=== PATIENT | male | born 1945 | race Caucasian/White ===

== ENCOUNTER 2018-11-04 11:04 | Inpatient (IN) | payer MEDICARE, OTHER ==
[2018-11-04 12:16] LABS: ABNORMAL IP MESSAGE 1; HEMATOCRIT 36.1 % (42.0-52.0); HEMOGLOBIN 12.3 g/dl (14.0-18.0); MEAN CORPUSCULAR HEMOGLOBIN 28.9 pg (29.0-33.0); MEAN CORPUSCULAR HGB CONC 34.1 g/dl (32.0-37.0); MEAN CORPUSCULAR VOLUME 84.9 fl (82.0-101.0); MEAN PLATELET VOLUME 11.1 fl (7.4-10.4); PLATELET COUNT 224 10^3/UL (140-415); POSITIVE DIFF @See below; RED BLOOD COUNT 4.25 10^6/ul (4.70-6.10); RED CELL DISTRIBUTION WIDTH 14.6 % (11.5-14.5)
[2018-11-04 12:16] LABS: WHITE BLOOD COUNT 9.5 10^3/ul (4.8-10.8)
[2018-11-04 12:24] LABS: ADD MAN DIFF? YES; ALANINE AMINOTRANSFERASE 34 IU/L (13-69); ALBUMIN/GLOBULIN RATIO 1.05; ALKALINE PHOSPHATASE 128 IU/L (42-121); ANION GAP 24 (5-13); ASPARTATE AMINO TRANSFERASE 33 IU/L (15-46); BLOOD UREA NITROGEN 117 mg/dl (7-20); CARBON DIOXIDE 15 mmol/L (21-31); CHLORIDE 102 mmol/L (97-110); CREATININE 10.85 mg/dl (0.61-1.24); GLUCOSE 112 mg/dl (70-220); LIPASE 118 U/L (23-300); POTASSIUM 4.9 mmol/L (3.5-5.1); SODIUM 141 mmol/L (135-144); TOTAL PROTEIN 7.8 g/dl (6.1-8.1)
[2018-11-04 12:31] LABS: ADD UMIC YES; UR ASCORBIC ACID NEGATIVE (NEGATIVE); UR BACTERIA FEW /HPF (NONE SEEN); UR BILIRUBIN (Dip) NEGATIVE (NEGATIVE); UR BLOOD (Dip) 2+ mg/dL (NEGATIVE); UR CLARITY CLOUDY (CLEAR); UR COLOR YELLOW (YELLOW); UR GLUCOSE (Dip) NEGATIVE (NEGATIVE); UR KETONES (Dip) NEGATIVE (NEGATIVE); UR LEUKOCYTE ESTERASE (Dip) 3+ Leu/ul (NEGATIVE); UR MUCUS FEW /HPF (NONE SEEN); UR NITRITE (Dip) NEGATIVE (NEGATIVE); UR RBC 8 /HPF (0-5); UR SPECIFIC GRAVITY (Dip) 1.009 (1.003-1.030); UR TOTAL PROTEIN (Dip) 2+ mg/dl (NEGATIVE); UR UROBILINOGEN (Dip) NEGATIVE (NEGATIVE); UR WBC > 182 /HPF (0-5)
[2018-11-04 12:47] LABS: ANISOCYTOSIS 1+ (0-0); BAND NEUTROPHILS % (M) 32 % (0-4); GIANT THROMBO% (M) 3 % (0-0); LYMPHOCYTES #M 0.8 10^3/ul (0.8-2.9); LYMPHOCYTES % (M) 9 % (15-51); MICROCYTOSIS 1+ (0-0); MONOCYTE #M 0.5 10^3/ul (0.3-0.9); MONOCYTES % (M) 6 % (0-11); OVALOCYTES 1+ (0-0); PLATELET ESTIMATE NORMAL; REACTIVE LYMPHOCYTES #M 0.2 10^3/ul (0.0-0.0); REACTIVE LYMPHOCYTES% (M) 3 % (0-0); SEGMENTED NEUTROPHILS (M) % 50 % (39-77); SMUDGE%M 12 % (0-0)
[2018-11-04] MEDS: CEFTRIAXONE 1 GM/50 ML (PMX) 50 ML IVPB (13:34)
[2018-11-04] MEDS ORDERED: ACETAMINOPHEN 325 MG TAB PO (15:30)
[2018-11-04] MEDS ORDERED: BISACODYL 10 MG SUPP PR (15:30)
[2018-11-04] MEDS ORDERED: DOCUSATE SODIUM 100 MG CAP PO (15:30)
[2018-11-04] MEDS ORDERED: NACL 0.9% 3 ML SYG IV (15:30)
[2018-11-04] MEDS ORDERED: morphine 2 MG INJ IV (15:30)
[2018-11-04] MEDS ORDERED: ONDANSETRON 4 MG INJ IV ×2 (15:30)
[2018-11-04] MEDS: ACETAMINOPHEN 325 MG TAB PO (15:39)
[2018-11-04] MEDS: SODIUM CHLORIDE 0.9% 1L BAG IV* (15:46)
[2018-11-04 16:18] LABS: INR 1.33; PROTIME 16.6 Sec (11.9-14.9); PT RATIO 1.3
[2018-11-04] MEDS: SOD CHLORIDE 0.9% 1,000 ML IV (16:59)
[2018-11-04] MEDS ORDERED: INSULIN ASPART [NOVOLOG] 3 ML PEN SC (17:00)
[2018-11-04] MEDS ORDERED: GUAIFENESIN/DM 5ML CUP PO (17:30)
[2018-11-04 17:38] LABS: CREATININE,URINE RANDOM 96.32 mg/dl (20-370)
[2018-11-04 17:38] LABS: SODIUM,URINE RANDOM 90 mmol/L (30-90)
[2018-11-04] MEDS: INSULIN ASPART [NOVOLOG] 3 ML PEN SC ×2 (17:55→20:41)
[2018-11-04] MEDS: HYDROCODONE/APAP (5/325) TAB PO (20:42)
[2018-11-04] MEDS: SENNA/DOCUSATE NA (8.6MG/50MG) TAB PO (20:42)
[2018-11-04] MEDS: FAMOTIDINE 20 MG TAB PO (20:42)
[2018-11-04] MEDS: CITRIC ACID/NA CITRATE 30 ML CUP PO (21:00)
[2018-11-05] MEDS: ACCU-CHEK XX (02:00)
[2018-11-05] MEDS: SOD CHLORIDE 0.9% 1,000 ML IV ×2 (06:22→23:17)
[2018-11-05] MEDS: INSULIN ASPART [NOVOLOG] 3 ML PEN SC ×4 (07:56→20:23)
[2018-11-05] MEDS: THIAMINE 100 MG TAB PO (08:05)
[2018-11-05] MEDS: CITRIC ACID/NA CITRATE 30 ML CUP PO ×2 (08:05→20:13)
[2018-11-05] MEDS: FAMOTIDINE 20 MG TAB PO ×2 (08:05→20:16)
[2018-11-05 08:32] LABS: SODIUM,URINE RANDOM 66 mmol/L (30-90)
[2018-11-05 08:45] LABS: CREATININE,URINE RANDOM 79.58 mg/dl (20-370)
[2018-11-05 08:56] LABS: ADD MAN DIFF? NO
[2018-11-05 09:07] LABS: ABNORMAL IP MESSAGE 1; BASOPHILS % 0.1 % (0.0-2.0); EOSINOPHILS # 0.1 10^3/ul (0.0-0.5); EOSINOPHILS % 0.9 % (0.0-7.0); HEMATOCRIT 30.5 % (42.0-52.0); HEMOGLOBIN 10.3 g/dl (14.0-18.0); LYMPHOCYTES # 0.5 10^3/ul (0.8-2.9); LYMPHOCYTES % 5.2 % (15.0-51.0); MEAN CORPUSCULAR HEMOGLOBIN 29.2 pg (29.0-33.0); MEAN CORPUSCULAR HGB CONC 33.8 g/dl (32.0-37.0); MEAN CORPUSCULAR VOLUME 86.4 fl (82.0-101.0); MEAN PLATELET VOLUME 11.7 fl (7.4-10.4); MONOCYTE # 0.4 10^3/ul (0.3-0.9); MONOCYTES % 3.6 % (0.0-11.0); NEUTROPHIL # 8.9 10^3/ul (1.6-7.5); NEUTROPHILS % 89.9 % (39.0-77.0); PLATELET COUNT 205 10^3/UL (140-415); POSITIVE DIFF @See below; RED BLOOD COUNT 3.53 10^6/ul (4.70-6.10); RED CELL DISTRIBUTION WIDTH 14.6 % (11.5-14.5)
[2018-11-05 09:07] LABS: WHITE BLOOD COUNT 9.9 10^3/ul (4.8-10.8)
[2018-11-05 09:17] LABS: HEMOGLOBIN A1C 5.8 % (0-5.9)
[2018-11-05 09:23] LABS: URIC ACID 9.5 mg/dl (3.1-7.9)
[2018-11-05 09:23] LABS: ALANINE AMINOTRANSFERASE 33 IU/L (13-69); ALBUMIN 2.6 g/dl (3.3-4.9); ALBUMIN/GLOBULIN RATIO 0.92; ALKALINE PHOSPHATASE 117 IU/L (42-121); ANION GAP 20 (5-13); ASPARTATE AMINO TRANSFERASE 22 IU/L (15-46); BLOOD UREA NITROGEN 114 mg/dl (7-20); CALCIUM 8.1 mg/dl (8.4-10.2); CARBON DIOXIDE 16 mmol/L (21-31); CHLORIDE 110 mmol/L (97-110); CREATINE KINASE 153 IU/L (23-200); GLUCOSE 81 mg/dl (70-220); POTASSIUM 4.4 mmol/L (3.5-5.1); SODIUM 146 mmol/L (135-144); TOTAL PROTEIN 5.4 g/dl (6.1-8.1)
[2018-11-05 09:52] LABS: THYROID STIMULATING HORMONE 0.278 MIU/L (0.465-4.680)
[2018-11-05 14:38] LABS: PROSTATE SPECIFIC ANTIGEN 13.4 ng/ml (0.0-4.0)
[2018-11-05] MEDS: HYDROCODONE/APAP (5/325) TAB PO (14:42)
[2018-11-05] MEDS: CEFTRIAXONE 1 GM/NS 50 ML IVPB (15:09)
[2018-11-05] MEDS: SENNA/DOCUSATE NA (8.6MG/50MG) TAB PO (20:16)
[2018-11-06] MEDS: ACCU-CHEK XX (02:00)
[2018-11-06 05:03] LABS: ADD MAN DIFF? NO
[2018-11-06 05:08] LABS: WHITE BLOOD COUNT 11.6 10^3/ul (4.8-10.8)
[2018-11-06 05:08] LABS: BASOPHILS % 0.1 % (0.0-2.0); EOSINOPHILS # 0.1 10^3/ul (0.0-0.5); HEMATOCRIT 29.2 % (42.0-52.0); HEMOGLOBIN 10.1 g/dl (14.0-18.0); LYMPHOCYTES # 0.6 10^3/ul (0.8-2.9); LYMPHOCYTES % 5.4 % (15.0-51.0); MEAN CORPUSCULAR HEMOGLOBIN 28.7 pg (29.0-33.0); MEAN CORPUSCULAR HGB CONC 34.6 g/dl (32.0-37.0); MEAN PLATELET VOLUME 11.1 fl (7.4-10.4); MONOCYTE # 0.8 10^3/ul (0.3-0.9); MONOCYTES % 6.5 % (0.0-11.0); NEUTROPHILS % 85.9 % (39.0-77.0); PLATELET COUNT 201 10^3/UL (140-415); RED BLOOD COUNT 3.52 10^6/ul (4.70-6.10)
[2018-11-06 05:25] LABS: INR 1.18; PROTIME 15.1 Sec (11.9-14.9); PT RATIO 1.2
[2018-11-06 05:34] LABS: ALANINE AMINOTRANSFERASE 22 IU/L (13-69); ALBUMIN 2.9 g/dl (3.3-4.9); ALBUMIN/GLOBULIN RATIO 0.78; ALKALINE PHOSPHATASE 252 IU/L (42-121); ANION GAP 13 (5-13); ASPARTATE AMINO TRANSFERASE 34 IU/L (15-46); BLOOD UREA NITROGEN 100 mg/dl (7-20); CALCIUM 8.5 mg/dl (8.4-10.2); CARBON DIOXIDE 16 mmol/L (21-31); CHLORIDE 113 mmol/L (97-110); GLUCOSE 94 mg/dl (70-220); POTASSIUM 3.7 mmol/L (3.5-5.1); SODIUM 142 mmol/L (135-144); TOTAL PROTEIN 6.6 g/dl (6.1-8.1)
[2018-11-06 05:41] LABS: FREE T4 (FREE THYROXINE) 1.44 ng/dl (0.78-2.44)
[2018-11-06 05:55] LABS: TRIIODOTHYRONINE 0.97 ng/ml (0.97-1.69)
[2018-11-06] MEDS: INSULIN ASPART [NOVOLOG] 3 ML PEN SC ×4 (08:00→21:00)
[2018-11-06] MEDS: FAMOTIDINE 20 MG TAB PO ×2 (08:18→21:25)
[2018-11-06] MEDS: THIAMINE 100 MG TAB PO (08:18)
[2018-11-06] MEDS: CITRIC ACID/NA CITRATE 30 ML CUP PO ×2 (08:18→21:26)
[2018-11-06] MEDS: SOD CHLORIDE 0.45% 1,000 ML IV (09:45)
[2018-11-06] MEDS: BISACODYL (EC) 5 MG TAB PO (12:23)
[2018-11-06] MEDS: CEFTRIAXONE 1 GM/NS 50 ML IVPB (14:46)
[2018-11-06] MEDS ORDERED: morphine LIQ (10 MG/5 ML) CUP PO (15:00)
[2018-11-06] MEDS: SENNA/DOCUSATE NA (8.6MG/50MG) TAB PO (21:26)
[2018-11-07] MEDS: SOD CHLORIDE 0.45% 1,000 ML IV ×2 (01:10→05:47)
[2018-11-07] MEDS: ACCU-CHEK XX (01:53)
[2018-11-07] MEDS: INSULIN ASPART [NOVOLOG] 3 ML PEN SC ×4 (08:00→21:00)
[2018-11-07] MEDS: CITRIC ACID/NA CITRATE 30 ML CUP PO ×2 (08:12→21:20)
[2018-11-07] MEDS: FAMOTIDINE 20 MG TAB PO (08:13)
[2018-11-07] MEDS: ENOXAPARIN 30 MG/0.3 ML SYG SC (08:14)
[2018-11-07] MEDS: THIAMINE 100 MG TAB PO (08:17)
[2018-11-07] MEDS: CEFTRIAXONE 1 GM/NS 50 ML IVPB (14:51)
[2018-11-07] MEDS: HYDROCODONE/APAP (5/325) TAB PO (14:57)
[2018-11-07 15:28] LABS: ANION GAP 13 (5-13); BLOOD UREA NITROGEN 87 mg/dl (7-20); CALCIUM 8.7 mg/dl (8.4-10.2); CARBON DIOXIDE 22 mmol/L (21-31); CHLORIDE 105 mmol/L (97-110); CREATININE 5.82 mg/dl (0.61-1.24); GLUCOSE 158 mg/dl (70-220); POTASSIUM 3.4 mmol/L (3.5-5.1); SODIUM 140 mmol/L (135-144)
[2018-11-07] MEDS ORDERED: DEXTROSE 50% 50 ML SYRINGE IV ×2 (18:00)
[2018-11-07] MEDS ORDERED: GLUCAGON 1 MG INJ IM (18:00)
[2018-11-07] MEDS ORDERED: GLUCOSE GEL 15 GRAM TUBE PO ×2 (18:00)
[2018-11-07] MEDS ORDERED: GLUCOSE GEL 15 GRAM TUBE BUCCAL (18:00)
[2018-11-07] MEDS: CIPROFLOXACIN 250 MG TAB PO (18:36)
[2018-11-07] MEDS: LACTOBACILLUS RHAMNOSUS CAP PO (21:20)
[2018-11-07] MEDS: SENNA/DOCUSATE NA (8.6MG/50MG) TAB PO (21:20)
[2018-11-08] MEDS: ACCU-CHEK XX (02:00)
[2018-11-08] MEDS: SOD CHLORIDE 0.45% 1,000 ML IV ×2 (02:45→20:45)
[2018-11-08 05:35] LABS: ADD MAN DIFF? NO
[2018-11-08 05:40] LABS: WHITE BLOOD COUNT 13.7 10^3/ul (4.8-10.8)
[2018-11-08 05:40] LABS: ABNORMAL IP MESSAGE 1; BASOPHIL # 0.1 10^3/ul (0.0-0.1); BASOPHILS % 0.4 % (0.0-2.0); EOSINOPHILS # 0.2 10^3/ul (0.0-0.5); EOSINOPHILS % 1.3 % (0.0-7.0); HEMATOCRIT 30.4 % (42.0-52.0); HEMOGLOBIN 10.6 g/dl (14.0-18.0); LYMPHOCYTES # 1.2 10^3/ul (0.8-2.9); LYMPHOCYTES % 8.5 % (15.0-51.0); MEAN CORPUSCULAR HEMOGLOBIN 28.2 pg (29.0-33.0); MEAN CORPUSCULAR HGB CONC 34.9 g/dl (32.0-37.0); MEAN CORPUSCULAR VOLUME 80.9 fl (82.0-101.0); MEAN PLATELET VOLUME 11.2 fl (7.4-10.4); MONOCYTE # 1.6 10^3/ul (0.3-0.9); MONOCYTES % 11.8 % (0.0-11.0); NEUTROPHIL # 10.1 10^3/ul (1.6-7.5); NEUTROPHILS % 73.9 % (39.0-77.0); PLATELET COUNT 240 10^3/UL (140-415); POSITIVE DIFF @See below; RED BLOOD COUNT 3.76 10^6/ul (4.70-6.10); RED CELL DISTRIBUTION WIDTH 13.4 % (11.5-14.5)
[2018-11-08 05:57] LABS: ANION GAP 12 (5-13); BLOOD UREA NITROGEN 80 mg/dl (7-20); CALCIUM 8.3 mg/dl (8.4-10.2); CARBON DIOXIDE 21 mmol/L (21-31); CHLORIDE 105 mmol/L (97-110); CREATININE 5.24 mg/dl (0.61-1.24); GLUCOSE 118 mg/dl (70-220); POTASSIUM 3.4 mmol/L (3.5-5.1); SODIUM 138 mmol/L (135-144)
[2018-11-08 06:44] LABS: MAGNESIUM 1.6 mg/dl (1.7-2.5)
[2018-11-08] MEDS: INSULIN ASPART [NOVOLOG] 3 ML PEN SC ×4 (07:48→20:36)
[2018-11-08] MEDS: FAMOTIDINE 20 MG TAB PO (08:47)
[2018-11-08] MEDS: THIAMINE 100 MG TAB PO (08:47)
[2018-11-08] MEDS: CITRIC ACID/NA CITRATE 30 ML CUP PO ×2 (08:47→20:35)
[2018-11-08] MEDS: LACTOBACILLUS RHAMNOSUS CAP PO ×2 (08:47→20:35)
[2018-11-08] MEDS: ENOXAPARIN 30 MG/0.3 ML SYG SC (08:52)
[2018-11-08] MEDS: MAGNESIUM OXIDE 400 MG TAB PO ×2 (13:36→20:35)
[2018-11-08] MEDS: POTASSIUM CHLORIDE 20 MEQ POWDER FOR ORAL SOLN PO (13:36)
[2018-11-08] MEDS: CIPROFLOXACIN 250 MG TAB PO (20:35)
[2018-11-08] MEDS: SENNA/DOCUSATE NA (8.6MG/50MG) TAB PO (20:36)
[2018-11-09] MEDS: ACCU-CHEK XX (02:00)
[2018-11-09 06:08] LABS: ADD MAN DIFF? NO
[2018-11-09 06:11] LABS: WHITE BLOOD COUNT 16.1 10^3/ul (4.8-10.8)
[2018-11-09 06:11] LABS: ABNORMAL IP MESSAGE 1; BASOPHIL # 0.1 10^3/ul (0.0-0.1); BASOPHILS % 0.4 % (0.0-2.0); EOSINOPHILS # 0.3 10^3/ul (0.0-0.5); EOSINOPHILS % 1.9 % (0.0-7.0); HEMATOCRIT 29.8 % (42.0-52.0); HEMOGLOBIN 10.7 g/dl (14.0-18.0); LYMPHOCYTES # 1.7 10^3/ul (0.8-2.9); LYMPHOCYTES % 10.3 % (15.0-51.0); MEAN CORPUSCULAR HEMOGLOBIN 29.3 pg (29.0-33.0); MEAN CORPUSCULAR HGB CONC 35.9 g/dl (32.0-37.0); MEAN CORPUSCULAR VOLUME 81.6 fl (82.0-101.0); MEAN PLATELET VOLUME 10.9 fl (7.4-10.4); MONOCYTE # 2.1 10^3/ul (0.3-0.9); MONOCYTES % 13.2 % (0.0-11.0); NEUTROPHIL # 10.9 10^3/ul (1.6-7.5); NEUTROPHILS % 67.6 % (39.0-77.0); PLATELET COUNT 261 10^3/UL (140-415); POSITIVE DIFF @See below; RED BLOOD COUNT 3.65 10^6/ul (4.70-6.10); RED CELL DISTRIBUTION WIDTH 13.6 % (11.5-14.5)
[2018-11-09 06:30] LABS: ALANINE AMINOTRANSFERASE 36 IU/L (13-69); ALBUMIN 2.9 g/dl (3.3-4.9); ALBUMIN/GLOBULIN RATIO 0.74; ALKALINE PHOSPHATASE 314 IU/L (42-121); ANION GAP 11 (5-13); ASPARTATE AMINO TRANSFERASE 45 IU/L (15-46); BILIRUBIN,INDIRECT 0.1 mg/dl (0-1.1); BILIRUBIN,TOTAL 0.1 mg/dl (0.2-1.3); BLOOD UREA NITROGEN 74 mg/dl (7-20); CALCIUM 8.2 mg/dl (8.4-10.2); CARBON DIOXIDE 24 mmol/L (21-31); CHLORIDE 105 mmol/L (97-110); CREATININE 4.78 mg/dl (0.61-1.24); GLUCOSE 119 mg/dl (70-220); POTASSIUM 3.8 mmol/L (3.5-5.1); SODIUM 140 mmol/L (135-144); TOTAL PROTEIN 6.8 g/dl (6.1-8.1)
[2018-11-09] MEDS: INSULIN ASPART [NOVOLOG] 3 ML PEN SC ×4 (08:00→20:08)
[2018-11-09] MEDS: ENOXAPARIN 30 MG/0.3 ML SYG SC (08:28)
[2018-11-09] MEDS: LACTOBACILLUS RHAMNOSUS CAP PO ×2 (08:29→20:01)
[2018-11-09] MEDS: CITRIC ACID/NA CITRATE 30 ML CUP PO ×2 (08:29→20:01)
[2018-11-09] MEDS: FAMOTIDINE 20 MG TAB PO (08:29)
[2018-11-09] MEDS: POTASSIUM CHLORIDE 20 MEQ POWDER FOR ORAL SOLN PO (08:29)
[2018-11-09] MEDS: MAGNESIUM OXIDE 400 MG TAB PO ×2 (08:29→20:01)
[2018-11-09] MEDS: THIAMINE 100 MG TAB PO (08:32)
[2018-11-09 09:00] LABS: ANISOCYTOSIS 1+ (0-0); BASOPHIL #M 0.3 10^3/ul (0.0-0.0); BASOPHILS % (M) 2 % (0-2); EOSINOPHILS % (M) 2 % (0-7); GIANT THROMBO% (M) 1 % (0-0); LYMPHOCYTES #M 2.8 10^3/ul (0.8-2.9); LYMPHOCYTES % (M) 18 % (15-51); MONOCYTE #M 0.9 10^3/ul (0.3-0.9); MONOCYTES % (M) 6 % (0-11); MYELOCYTES #M 0.3 10^3/ul (0.0-0.0); MYELOCYTES % (M) 2 % (0-0); PLATELET ESTIMATE NORMAL; PROMYELOCYTES #M 0.1 10^3/ul (0-0); PROMYELOCYTES % (M) 1 % (0-0); REACTIVE LYMPHOCYTES #M 0.1 10^3/ul (0.0-0.0); REACTIVE LYMPHOCYTES% (M) 1 % (0-0); SEGMENTED NEUTROPHILS (M) % 68 % (39-77); SMUDGE%M 15 % (0-0); TARGET CELLS 1+ (0-0)
[2018-11-09] MEDS: CIPROFLOXACIN 250 MG TAB PO (17:29)
[2018-11-09] MEDS: SOD CHLORIDE 0.45% 1,000 ML IV (17:31)
[2018-11-09] MEDS: SENNA/DOCUSATE NA (8.6MG/50MG) TAB PO (20:01)
[2018-11-10] MEDS: ACCU-CHEK XX (02:00)
[2018-11-10] MEDS: INSULIN ASPART [NOVOLOG] 3 ML PEN SC ×4 (08:00→20:04)
[2018-11-10] MEDS: LACTOBACILLUS RHAMNOSUS CAP PO ×2 (08:08→20:03)
[2018-11-10] MEDS: CITRIC ACID/NA CITRATE 30 ML CUP PO ×2 (08:08→20:03)
[2018-11-10] MEDS: POTASSIUM CHLORIDE 20 MEQ POWDER FOR ORAL SOLN PO (08:08)
[2018-11-10] MEDS: FAMOTIDINE 20 MG TAB PO (08:08)
[2018-11-10] MEDS: THIAMINE 100 MG TAB PO (08:08)
[2018-11-10] MEDS: MAGNESIUM OXIDE 400 MG TAB PO ×2 (08:08→20:04)
[2018-11-10] MEDS: ENOXAPARIN 30 MG/0.3 ML SYG SC (08:10)
[2018-11-10 10:17] LABS: ADD MAN DIFF? NO
[2018-11-10 10:19] LABS: WHITE BLOOD COUNT 21.1 10^3/ul (4.8-10.8)
[2018-11-10 10:19] LABS: ABNORMAL IP MESSAGE 1; BASOPHIL # 0.1 10^3/ul (0.0-0.1); BASOPHILS % 0.4 % (0.0-2.0); EOSINOPHILS # 0.2 10^3/ul (0.0-0.5); HEMOGLOBIN 11.3 g/dl (14.0-18.0); LYMPHOCYTES # 1.6 10^3/ul (0.8-2.9); LYMPHOCYTES % 7.7 % (15.0-51.0); MEAN CORPUSCULAR HEMOGLOBIN 28.3 pg (29.0-33.0); MEAN CORPUSCULAR HGB CONC 34.2 g/dl (32.0-37.0); MEAN CORPUSCULAR VOLUME 82.7 fl (82.0-101.0); MEAN PLATELET VOLUME 10.3 fl (7.4-10.4); MONOCYTE # 1.7 10^3/ul (0.3-0.9); MONOCYTES % 7.9 % (0.0-11.0); NEUTROPHIL # 16.7 10^3/ul (1.6-7.5); NEUTROPHILS % 79.1 % (39.0-77.0); PLATELET COUNT 333 10^3/UL (140-415); POSITIVE DIFF @See below; RED BLOOD COUNT 3.99 10^6/ul (4.70-6.10); RED CELL DISTRIBUTION WIDTH 13.8 % (11.5-14.5)
[2018-11-10 10:40] LABS: ANION GAP 13 (5-13); BLOOD UREA NITROGEN 64 mg/dl (7-20); CALCIUM 8.3 mg/dl (8.4-10.2); CARBON DIOXIDE 24 mmol/L (21-31); CHLORIDE 104 mmol/L (97-110); CREATININE 4.58 mg/dl (0.61-1.24); GLUCOSE 148 mg/dl (70-220); POTASSIUM 5.4 mmol/L (3.5-5.1); SODIUM 141 mmol/L (135-144)
[2018-11-10] MEDS: NA POLYST SULFON 15 GM/60 ML BTL PO (14:17)
[2018-11-10] MEDS: HYDROCODONE/APAP (5/325) TAB PO (14:29)
[2018-11-10] MEDS: SOD CHLORIDE 0.45% 1,000 ML IV (17:31)
[2018-11-10] MEDS: CIPROFLOXACIN 250 MG TAB PO (18:17)
[2018-11-10] MEDS: SENNA/DOCUSATE NA (8.6MG/50MG) TAB PO (20:04)
[2018-11-11] MEDS: ACCU-CHEK XX (02:00)
[2018-11-11 06:51] LABS: ADD MAN DIFF? NO
[2018-11-11 06:53] LABS: WHITE BLOOD COUNT 17.3 10^3/ul (4.8-10.8)
[2018-11-11 06:53] LABS: ABNORMAL IP MESSAGE 1; BASOPHIL # 0.1 10^3/ul (0.0-0.1); BASOPHILS % 0.4 % (0.0-2.0); EOSINOPHILS # 0.3 10^3/ul (0.0-0.5); EOSINOPHILS % 1.7 % (0.0-7.0); HEMATOCRIT 32.6 % (42.0-52.0); HEMOGLOBIN 10.9 g/dl (14.0-18.0); LYMPHOCYTES % 11.4 % (15.0-51.0); MEAN CORPUSCULAR HEMOGLOBIN 28.4 pg (29.0-33.0); MEAN CORPUSCULAR HGB CONC 33.4 g/dl (32.0-37.0); MEAN CORPUSCULAR VOLUME 84.9 fl (82.0-101.0); MEAN PLATELET VOLUME 10.3 fl (7.4-10.4); MONOCYTE # 1.6 10^3/ul (0.3-0.9); NEUTROPHIL # 12.8 10^3/ul (1.6-7.5); NEUTROPHILS % 73.7 % (39.0-77.0); PLATELET COUNT 359 10^3/UL (140-415); POSITIVE DIFF @See below; RED BLOOD COUNT 3.84 10^6/ul (4.70-6.10)
[2018-11-11 07:16] LABS: PHOSPHORUS 4.4 mg/dl (2.5-4.9)
[2018-11-11 07:23] LABS: ANION GAP 9 (5-13); BLOOD UREA NITROGEN 59 mg/dl (7-20); CALCIUM 8.1 mg/dl (8.4-10.2); CARBON DIOXIDE 25 mmol/L (21-31); CHLORIDE 104 mmol/L (97-110); CREATININE 4.71 mg/dl (0.61-1.24); GLUCOSE 127 mg/dl (70-220); POTASSIUM 4.6 mmol/L (3.5-5.1); SODIUM 138 mmol/L (135-144)
[2018-11-11] MEDS: INSULIN ASPART [NOVOLOG] 3 ML PEN SC (08:00)
[2018-11-11] MEDS: LACTOBACILLUS RHAMNOSUS CAP PO (08:21)
[2018-11-11] MEDS: CITRIC ACID/NA CITRATE 30 ML CUP PO (08:21)
[2018-11-11] MEDS: THIAMINE 100 MG TAB PO (08:21)
[2018-11-11] MEDS: FAMOTIDINE 20 MG TAB PO (08:21)
[2018-11-11] MEDS: MAGNESIUM OXIDE 400 MG TAB PO (08:21)
[2018-11-11] MEDS: ENOXAPARIN 30 MG/0.3 ML SYG SC (08:23)
[2018-11-11] MEDS: HEPARIN 5,000 UNIT/1 ML VIAL SC (13:22)
[2018-11-11] MEDS: CIPROFLOXACIN 250 MG TAB PO (17:28)
== END 2018-11-11 17:54 | DRG 683 ==
LOC: E/R 11:04 → PP2 11-06 19:58
PROVIDERS: Internal Medicine
DX: N17.9 Acute kidney failure, unspecified (principal); E87.2 Acidosis; N13.6 Pyonephrosis; I12.9 Hypertensive chronic kidney disease with stage 1 through stage 4 chronic kidney disease, or unspecified chronic kidney disease; E11.22 Type 2 diabetes mellitus with diabetic chronic kidney disease; N18.9 Chronic kidney disease, unspecified; G31.84 Mild cognitive impairment of uncertain or unknown etiology; D63.1 Anemia in chronic kidney disease; Z90.5 Acquired absence of kidney; B96.1 Klebsiella pneumoniae [K. pneumoniae] as the cause of diseases classified elsewhere; B96.89 Other specified bacterial agents as the cause of diseases classified elsewhere; N40.0 Benign prostatic hyperplasia without lower urinary tract symptoms
CPT/HCPCS: 36415; 70450; 74176; 76775; 80048; 80053; 81001; 81003; 82550; 82570; 82962; 83036; 83605; 83690; 83735; 84100; 84153; 84154; 84155; 84300; 84439; 84443; 84480; 84560; 85025; 85610; 87040; 87086; 89190; 96374; 99291-25

== ENCOUNTER 2018-11-11 18:19 | Inpatient (IN) | payer MEDICARE, OTHER ==
[2018-11-11] MEDS ORDERED: LACTULOSE 30ML CUP PO (18:30)
[2018-11-11] MEDS ORDERED: BISACODYL 10 MG SUPP PR (18:30)
[2018-11-11] MEDS ORDERED: PENDING SANTYL ORDER FOR WOUND CARE XX (18:30)
[2018-11-11] MEDS ORDERED: MAGNESIUM HYDROXIDE 30ML CUP PO (18:30)
[2018-11-11] MEDS ORDERED: ACETAMINOPHEN 325 MG TAB PO (18:30)
[2018-11-11] MEDS ORDERED: BISACODYL (EC) 5 MG TAB PO (20:00)
[2018-11-11] MEDS ORDERED: DOCUSATE SODIUM 100 MG CAP PO (20:00)
[2018-11-11] MEDS: SENNA/DOCUSATE NA (8.6MG/50MG) TAB PO (21:00)
[2018-11-11] MEDS: SENNA TAB PO (21:00)
[2018-11-11] MEDS: CITRIC ACID/NA CITRATE 30 ML CUP PO (21:51)
[2018-11-11] MEDS: MAGNESIUM OXIDE 400 MG TAB PO (21:51)
[2018-11-11] MEDS: DOCUSATE SODIUM 100 MG CAP PO (21:51)
[2018-11-11] MEDS: HEPARIN 5,000 UNIT/1 ML VIAL SC (21:53)
[2018-11-11 23:45] LABS: ADD UMIC YES; UR AMORPHOUS CRYSTAL FEW /HPF (NONE SEEN); UR ASCORBIC ACID NEGATIVE (NEGATIVE); UR BACTERIA FEW /HPF (NONE SEEN); UR BILIRUBIN (Dip) NEGATIVE (NEGATIVE); UR BLOOD (Dip) 2+ mg/dL (NEGATIVE); UR CLARITY CLOUDY (CLEAR); UR COLOR YELLOW (YELLOW); UR GLUCOSE (Dip) NEGATIVE (NEGATIVE); UR KETONES (Dip) NEGATIVE (NEGATIVE); UR LEUKOCYTE ESTERASE (Dip) 3+ Leu/ul (NEGATIVE); UR NITRITE (Dip) NEGATIVE (NEGATIVE); UR RBC 26 /HPF (0-5); UR SPECIFIC GRAVITY (Dip) 1.011 (1.003-1.030); UR TOTAL PROTEIN (Dip) 2+ mg/dl (NEGATIVE); UR UROBILINOGEN (Dip) NEGATIVE (NEGATIVE); UR WBC > 182 /HPF (0-5)
[2018-11-12] MEDS: HEPARIN 5,000 UNIT/1 ML VIAL SC ×3 (06:25→21:48)
[2018-11-12 06:45] LABS: ADD MAN DIFF? NO
[2018-11-12 06:47] LABS: ABNORMAL IP MESSAGE 1; BASOPHIL # 0.1 10^3/ul (0.0-0.1); BASOPHILS % 0.5 % (0.0-2.0); EOSINOPHILS # 0.3 10^3/ul (0.0-0.5); EOSINOPHILS % 1.6 % (0.0-7.0); HEMATOCRIT 31.2 % (42.0-52.0); HEMOGLOBIN 10.3 g/dl (14.0-18.0); LYMPHOCYTES # 2.6 10^3/ul (0.8-2.9); LYMPHOCYTES % 14.7 % (15.0-51.0); MEAN CORPUSCULAR HEMOGLOBIN 28.4 pg (29.0-33.0); MEAN PLATELET VOLUME 9.9 fl (7.4-10.4); MONOCYTE # 1.5 10^3/ul (0.3-0.9); MONOCYTES % 8.6 % (0.0-11.0); NEUTROPHILS % 72.2 % (39.0-77.0); PLATELET COUNT 394 10^3/UL (140-415); POSITIVE DIFF @See below; RED BLOOD COUNT 3.63 10^6/ul (4.70-6.10)
[2018-11-12 07:11] LABS: ALANINE AMINOTRANSFERASE 30 IU/L (13-69); ALBUMIN/GLOBULIN RATIO 0.78; ALKALINE PHOSPHATASE 241 IU/L (42-121); ANION GAP 12 (5-13); ASPARTATE AMINO TRANSFERASE 33 IU/L (15-46); BILIRUBIN,INDIRECT 0.1 mg/dl (0-1.1); BILIRUBIN,TOTAL 0.1 mg/dl (0.2-1.3); BLOOD UREA NITROGEN 55 mg/dl (7-20); CALCIUM 8.1 mg/dl (8.4-10.2); CARBON DIOXIDE 23 mmol/L (21-31); CHLORIDE 105 mmol/L (97-110); CREATININE 4.97 mg/dl (0.61-1.24); GLUCOSE 124 mg/dl (70-220); POTASSIUM 4.4 mmol/L (3.5-5.1); SODIUM 140 mmol/L (135-144); TOTAL PROTEIN 6.8 g/dl (6.1-8.1)
[2018-11-12] MEDS: FAMOTIDINE 20 MG TAB PO (08:54)
[2018-11-12] MEDS: CITRIC ACID/NA CITRATE 30 ML CUP PO ×2 (08:54→21:46)
[2018-11-12] MEDS: MAGNESIUM OXIDE 400 MG TAB PO ×2 (08:54→21:46)
[2018-11-12] MEDS: DOCUSATE SODIUM 100 MG CAP PO ×2 (08:54→21:00)
[2018-11-12] MEDS: THIAMINE 100 MG TAB PO (08:54)
[2018-11-12 11:10] LABS: IRON 30 ug/dl (35-150)
[2018-11-12 11:20] LABS: % IRON SATURATION 13 % SAT (22-52)
[2018-11-12 11:23] LABS: TOTAL IRON BINDING CAPACITY 227 ug/dl (241-421)
[2018-11-12] MEDS ORDERED: CEFPODOXIME 200 MG TAB PO (11:30)
[2018-11-12] MEDS: CEFTRIAXONE 1 GM INJ IM (14:20)
[2018-11-12] MEDS ORDERED: CIPROFLOXACIN 250 MG TAB PO (18:00)
[2018-11-12] MEDS ORDERED: CEFEPIME 1GM/50 ML (PMX) 50 ML IVPB (21:00)
[2018-11-12] MEDS: SENNA TAB PO (21:00)
[2018-11-12] MEDS: SENNA/DOCUSATE NA (8.6MG/50MG) TAB PO (21:00)
[2018-11-13] MEDS: CIPROFLOXACIN 250 MG TAB PO ×2 (06:26→19:37)
[2018-11-13] MEDS: HEPARIN 5,000 UNIT/1 ML VIAL SC ×3 (06:29→21:52)
[2018-11-13] MEDS ORDERED: CEFPODOXIME 200 MG TAB PO (09:00)
[2018-11-13] MEDS: DOCUSATE SODIUM 100 MG CAP PO ×2 (09:00→20:41)
[2018-11-13] MEDS: CITRIC ACID/NA CITRATE 30 ML CUP PO ×2 (09:35→20:41)
[2018-11-13] MEDS: FAMOTIDINE 20 MG TAB PO (09:36)
[2018-11-13] MEDS: THIAMINE 100 MG TAB PO (09:36)
[2018-11-13] MEDS: MAGNESIUM OXIDE 400 MG TAB PO ×2 (09:38→20:40)
[2018-11-13 13:39] LABS: ADD MAN DIFF? NO
[2018-11-13 13:42] LABS: BASOPHIL # 0.1 10^3/ul (0.0-0.1); BASOPHILS % 0.8 % (0.0-2.0); EOSINOPHILS # 0.2 10^3/ul (0.0-0.5); EOSINOPHILS % 1.2 % (0.0-7.0); HEMATOCRIT 33.9 % (42.0-52.0); HEMOGLOBIN 10.9 g/dl (14.0-18.0); LYMPHOCYTES # 1.6 10^3/ul (0.8-2.9); LYMPHOCYTES % 11.3 % (15.0-51.0); MEAN CORPUSCULAR HEMOGLOBIN 28.7 pg (29.0-33.0); MEAN CORPUSCULAR HGB CONC 32.2 g/dl (32.0-37.0); MEAN CORPUSCULAR VOLUME 89.2 fl (82.0-101.0); MEAN PLATELET VOLUME 9.8 fl (7.4-10.4); MONOCYTE # 1.3 10^3/ul (0.3-0.9); MONOCYTES % 8.8 % (0.0-11.0); NEUTROPHIL # 11.1 10^3/ul (1.6-7.5); NEUTROPHILS % 76.2 % (39.0-77.0); PLATELET COUNT 428 10^3/UL (140-415); RED CELL DISTRIBUTION WIDTH 14.5 % (11.5-14.5)
[2018-11-13 13:42] LABS: WHITE BLOOD COUNT 14.5 10^3/ul (4.8-10.8)
[2018-11-13 13:58] LABS: ANION GAP 11 (5-13); BLOOD UREA NITROGEN 54 mg/dl (7-20); CALCIUM 8.1 mg/dl (8.4-10.2); CARBON DIOXIDE 23 mmol/L (21-31); CHLORIDE 102 mmol/L (97-110); CREATININE 5.07 mg/dl (0.61-1.24); GLUCOSE 173 mg/dl (70-220); POTASSIUM 4.5 mmol/L (3.5-5.1); SODIUM 136 mmol/L (135-144)
[2018-11-13] MEDS: FERROUS SULFATE (EC) 325 MG TAB PO (20:41)
[2018-11-13] MEDS: SENNA TAB PO (21:51)
[2018-11-13 22:58] LABS: ADD UMIC YES; UR ASCORBIC ACID NEGATIVE (NEGATIVE); UR BACTERIA MANY /HPF (NONE SEEN); UR BILIRUBIN (Dip) NEGATIVE (NEGATIVE); UR BLOOD (Dip) 2+ mg/dL (NEGATIVE); UR CLARITY TURBID (CLEAR); UR COLOR YELLOW (YELLOW); UR GLUCOSE (Dip) NEGATIVE (NEGATIVE); UR KETONES (Dip) NEGATIVE (NEGATIVE); UR LEUKOCYTE ESTERASE (Dip) 3+ Leu/ul (NEGATIVE); UR NITRITE (Dip) NEGATIVE (NEGATIVE); UR RBC 72 /HPF (0-5); UR SPECIFIC GRAVITY (Dip) 1.011 (1.003-1.030); UR TOTAL PROTEIN (Dip) 3+ mg/dl (NEGATIVE); UR UROBILINOGEN (Dip) NEGATIVE (NEGATIVE); UR WBC > 182 /HPF (0-5)
[2018-11-14] MEDS: CIPROFLOXACIN 250 MG TAB PO ×2 (05:43→17:40)
[2018-11-14] MEDS: HEPARIN 5,000 UNIT/1 ML VIAL SC ×3 (05:48→22:35)
[2018-11-14] MEDS: FAMOTIDINE 20 MG TAB PO (10:01)
[2018-11-14] MEDS: THIAMINE 100 MG TAB PO (10:01)
[2018-11-14] MEDS: FERROUS SULFATE (EC) 325 MG TAB PO ×2 (10:01→21:38)
[2018-11-14] MEDS: DOCUSATE SODIUM 100 MG CAP PO ×2 (10:01→21:38)
[2018-11-14] MEDS: MAGNESIUM OXIDE 400 MG TAB PO ×2 (10:02→21:38)
[2018-11-14] MEDS: CITRIC ACID/NA CITRATE 30 ML CUP PO ×2 (10:02→21:38)
[2018-11-14] MEDS ORDERED: SOD CHLORIDE 0.9% 500 ML IV (15:05)
[2018-11-14] MEDS: SOD CHLORIDE 0.9% 500 ML IV (15:37)
[2018-11-14] MEDS: SENNA TAB PO (21:38)
[2018-11-15] MEDS: CIPROFLOXACIN 250 MG TAB PO ×2 (06:28→19:11)
[2018-11-15] MEDS: HEPARIN 5,000 UNIT/1 ML VIAL SC ×4 (06:34→21:40)
[2018-11-15] MEDS: FAMOTIDINE 20 MG TAB PO (10:39)
[2018-11-15] MEDS: DOCUSATE SODIUM 100 MG CAP PO ×2 (10:39→20:20)
[2018-11-15] MEDS: MAGNESIUM OXIDE 400 MG TAB PO ×2 (10:40→20:20)
[2018-11-15] MEDS: FERROUS SULFATE (EC) 325 MG TAB PO ×2 (10:40→20:20)
[2018-11-15] MEDS: THIAMINE 100 MG TAB PO (10:40)
[2018-11-15] MEDS: CITRIC ACID/NA CITRATE 30 ML CUP PO ×2 (10:40→20:19)
[2018-11-15] MEDS: SENNA TAB PO (20:20)
[2018-11-16] MEDS: CIPROFLOXACIN 250 MG TAB PO ×2 (06:17→18:06)
[2018-11-16] MEDS: HEPARIN 5,000 UNIT/1 ML VIAL SC ×3 (06:18→21:00)
[2018-11-16] MEDS: DOCUSATE SODIUM 100 MG CAP PO ×2 (08:31→21:00)
[2018-11-16] MEDS: THIAMINE 100 MG TAB PO (08:31)
[2018-11-16] MEDS: CITRIC ACID/NA CITRATE 30 ML CUP PO ×2 (08:31→20:55)
[2018-11-16] MEDS: MAGNESIUM OXIDE 400 MG TAB PO ×2 (08:31→20:55)
[2018-11-16] MEDS: FERROUS SULFATE (EC) 325 MG TAB PO ×2 (08:31→20:55)
[2018-11-16] MEDS: FAMOTIDINE 20 MG TAB PO (08:31)
[2018-11-16] MEDS: SENNA TAB PO (21:00)
[2018-11-17] MEDS: CIPROFLOXACIN 250 MG TAB PO ×2 (06:21→18:17)
[2018-11-17 06:23] LABS: ADD MAN DIFF? NO
[2018-11-17] MEDS: HEPARIN 5,000 UNIT/1 ML VIAL SC ×3 (06:23→22:53)
[2018-11-17 06:26] LABS: BASOPHIL # 0.1 10^3/ul (0.0-0.1); BASOPHILS % 0.7 % (0.0-2.0); EOSINOPHILS # 0.1 10^3/ul (0.0-0.5); HEMATOCRIT 30.4 % (42.0-52.0); HEMOGLOBIN 9.9 g/dl (14.0-18.0); LYMPHOCYTES # 2.3 10^3/ul (0.8-2.9); LYMPHOCYTES % 17.7 % (15.0-51.0); MEAN CORPUSCULAR HEMOGLOBIN 28.5 pg (29.0-33.0); MEAN CORPUSCULAR HGB CONC 32.6 g/dl (32.0-37.0); MEAN CORPUSCULAR VOLUME 87.6 fl (82.0-101.0); MEAN PLATELET VOLUME 9.8 fl (7.4-10.4); MONOCYTE # 1.4 10^3/ul (0.3-0.9); MONOCYTES % 10.6 % (0.0-11.0); NEUTROPHIL # 9.1 10^3/ul (1.6-7.5); NEUTROPHILS % 69.4 % (39.0-77.0); PLATELET COUNT 633 10^3/UL (140-415); RED BLOOD COUNT 3.47 10^6/ul (4.70-6.10)
[2018-11-17 06:26] LABS: WHITE BLOOD COUNT 13.1 10^3/ul (4.8-10.8)
[2018-11-17 06:49] LABS: INR 1.07; PT RATIO 1.1
[2018-11-17 06:50] LABS: PARTIAL THROMBOPLASTIN TIME 31.3 Sec (23.0-35.0)
[2018-11-17 06:53] LABS: ALANINE AMINOTRANSFERASE 34 IU/L (13-69); ALBUMIN 3.1 g/dl (3.3-4.9); ALBUMIN/GLOBULIN RATIO 0.79; ALKALINE PHOSPHATASE 165 IU/L (42-121); ANION GAP 9 (5-13); ASPARTATE AMINO TRANSFERASE 31 IU/L (15-46); BILIRUBIN,INDIRECT 0.1 mg/dl (0-1.1); BILIRUBIN,TOTAL 0.1 mg/dl (0.2-1.3); BLOOD UREA NITROGEN 39 mg/dl (7-20); CALCIUM 8.5 mg/dl (8.4-10.2); CARBON DIOXIDE 23 mmol/L (21-31); CHLORIDE 103 mmol/L (97-110); CREATININE 5.31 mg/dl (0.61-1.24); GLUCOSE 114 mg/dl (70-220); POTASSIUM 4.4 mmol/L (3.5-5.1); SODIUM 135 mmol/L (135-144)
[2018-11-17 06:55] LABS: MAGNESIUM 2.5 mg/dl (1.7-2.5)
[2018-11-17] MEDS: DOCUSATE SODIUM 100 MG CAP PO ×2 (08:53→20:44)
[2018-11-17] MEDS: MAGNESIUM OXIDE 400 MG TAB PO ×2 (08:53→20:44)
[2018-11-17] MEDS: FERROUS SULFATE (EC) 325 MG TAB PO ×2 (08:53→20:44)
[2018-11-17] MEDS: FAMOTIDINE 20 MG TAB PO (08:53)
[2018-11-17] MEDS: CITRIC ACID/NA CITRATE 30 ML CUP PO ×2 (08:53→20:44)
[2018-11-17] MEDS: THIAMINE 100 MG TAB PO (08:53)
[2018-11-17] MEDS: SENNA TAB PO (20:45)
[2018-11-18] MEDS: HEPARIN 5,000 UNIT/1 ML VIAL SC ×3 (06:26→21:24)
[2018-11-18] MEDS: CIPROFLOXACIN 250 MG TAB PO ×2 (06:26→17:27)
[2018-11-18] MEDS: FERROUS SULFATE (EC) 325 MG TAB PO ×2 (09:03→21:22)
[2018-11-18] MEDS: CITRIC ACID/NA CITRATE 30 ML CUP PO ×2 (09:03→21:00)
[2018-11-18] MEDS: DOCUSATE SODIUM 100 MG CAP PO ×2 (09:04→21:00)
[2018-11-18] MEDS: FAMOTIDINE 20 MG TAB PO (09:04)
[2018-11-18] MEDS: THIAMINE 100 MG TAB PO (09:04)
[2018-11-18] MEDS: MAGNESIUM OXIDE 400 MG TAB PO ×2 (09:04→21:22)
[2018-11-18] MEDS: SENNA TAB PO (21:00)
[2018-11-19] MEDS: CIPROFLOXACIN 250 MG TAB PO ×2 (06:04→17:47)
[2018-11-19] MEDS: HEPARIN 5,000 UNIT/1 ML VIAL SC ×3 (06:06→21:40)
[2018-11-19] MEDS: CITRIC ACID/NA CITRATE 30 ML CUP PO ×2 (09:00→21:00)
[2018-11-19] MEDS: FAMOTIDINE 20 MG TAB PO (09:29)
[2018-11-19] MEDS: FERROUS SULFATE (EC) 325 MG TAB PO ×2 (09:29→21:36)
[2018-11-19] MEDS: DOCUSATE SODIUM 100 MG CAP PO ×2 (09:29→21:36)
[2018-11-19] MEDS: MAGNESIUM OXIDE 400 MG TAB PO ×2 (09:29→21:36)
[2018-11-19] MEDS: THIAMINE 100 MG TAB PO (09:29)
[2018-11-19] MEDS: SENNA TAB PO (21:36)
[2018-11-20] MEDS: CIPROFLOXACIN 250 MG TAB PO ×2 (06:02→16:58)
[2018-11-20] MEDS: HEPARIN 5,000 UNIT/1 ML VIAL SC ×3 (06:07→22:43)
[2018-11-20] MEDS: CITRIC ACID/NA CITRATE 30 ML CUP PO ×2 (09:00→20:58)
[2018-11-20] MEDS: THIAMINE 100 MG TAB PO (09:55)
[2018-11-20] MEDS: FAMOTIDINE 20 MG TAB PO (09:55)
[2018-11-20] MEDS: FERROUS SULFATE (EC) 325 MG TAB PO ×2 (09:55→20:58)
[2018-11-20] MEDS: DOCUSATE SODIUM 100 MG CAP PO ×2 (09:55→20:58)
[2018-11-20] MEDS: MAGNESIUM OXIDE 400 MG TAB PO ×2 (09:55→20:58)
[2018-11-20] MEDS: SENNA TAB PO (20:58)
[2018-11-21] MEDS: CIPROFLOXACIN 250 MG TAB PO ×2 (06:35→17:26)
[2018-11-21] MEDS: HEPARIN 5,000 UNIT/1 ML VIAL SC ×3 (06:51→21:07)
[2018-11-21] MEDS: MAGNESIUM OXIDE 400 MG TAB PO ×2 (08:35→20:58)
[2018-11-21] MEDS: CITRIC ACID/NA CITRATE 30 ML CUP PO ×2 (08:35→20:58)
[2018-11-21] MEDS: FERROUS SULFATE (EC) 325 MG TAB PO ×2 (08:36→20:59)
[2018-11-21] MEDS: DOCUSATE SODIUM 100 MG CAP PO ×2 (08:36→20:59)
[2018-11-21] MEDS: FAMOTIDINE 20 MG TAB PO (08:36)
[2018-11-21] MEDS: THIAMINE 100 MG TAB PO (08:36)
[2018-11-21] MEDS: ACETAMINOPHEN 325 MG TAB PO ×2 (12:05→17:26)
[2018-11-21] MEDS: SENNA TAB PO (20:58)
[2018-11-22] MEDS: CIPROFLOXACIN 250 MG TAB PO ×2 (06:25→17:22)
[2018-11-22] MEDS: HEPARIN 5,000 UNIT/1 ML VIAL SC ×3 (06:29→22:25)
[2018-11-22] MEDS: THIAMINE 100 MG TAB PO (08:48)
[2018-11-22] MEDS: DOCUSATE SODIUM 100 MG CAP PO ×2 (08:48→20:25)
[2018-11-22] MEDS: FERROUS SULFATE (EC) 325 MG TAB PO ×2 (08:48→20:25)
[2018-11-22] MEDS: FAMOTIDINE 20 MG TAB PO (08:48)
[2018-11-22] MEDS: CITRIC ACID/NA CITRATE 30 ML CUP PO ×2 (08:48→20:25)
[2018-11-22] MEDS: MAGNESIUM OXIDE 400 MG TAB PO ×2 (08:48→20:25)
[2018-11-22] MEDS: SENNA TAB PO (20:25)
[2018-11-23] MEDS: CIPROFLOXACIN 250 MG TAB PO ×2 (06:36→17:37)
[2018-11-23] MEDS: HEPARIN 5,000 UNIT/1 ML VIAL SC ×3 (06:37→21:36)
[2018-11-23] MEDS: FERROUS SULFATE (EC) 325 MG TAB PO ×2 (08:34→21:30)
[2018-11-23] MEDS: MAGNESIUM OXIDE 400 MG TAB PO ×2 (08:34→21:30)
[2018-11-23] MEDS: THIAMINE 100 MG TAB PO (08:34)
[2018-11-23] MEDS: CITRIC ACID/NA CITRATE 30 ML CUP PO ×2 (08:34→21:29)
[2018-11-23] MEDS: FAMOTIDINE 20 MG TAB PO (08:34)
[2018-11-23] MEDS: DOCUSATE SODIUM 100 MG CAP PO ×2 (08:34→21:30)
[2018-11-23] MEDS: SENNA TAB PO (21:30)
[2018-11-24] MEDS: HEPARIN 5,000 UNIT/1 ML VIAL SC ×2 (06:14→13:47)
[2018-11-24] MEDS: CIPROFLOXACIN 250 MG TAB PO ×2 (06:14→17:46)
[2018-11-24] MEDS: CITRIC ACID/NA CITRATE 30 ML CUP PO (09:11)
[2018-11-24] MEDS: THIAMINE 100 MG TAB PO (09:12)
[2018-11-24] MEDS: MAGNESIUM OXIDE 400 MG TAB PO (09:12)
[2018-11-24] MEDS: FAMOTIDINE 20 MG TAB PO (09:12)
[2018-11-24] MEDS: FERROUS SULFATE (EC) 325 MG TAB PO (09:12)
[2018-11-24] MEDS: DOCUSATE SODIUM 100 MG CAP PO (09:12)
[2018-11-24 11:08] LABS: ADD MAN DIFF? NO
[2018-11-24 11:17] LABS: WHITE BLOOD COUNT 8.3 10^3/ul (4.8-10.8)
[2018-11-24 11:17] LABS: BASOPHIL # 0.1 10^3/ul (0.0-0.1); EOSINOPHILS # 0.1 10^3/ul (0.0-0.5); EOSINOPHILS % 1.3 % (0.0-7.0); HEMATOCRIT 32.5 % (42.0-52.0); HEMOGLOBIN 10.2 g/dl (14.0-18.0); LYMPHOCYTES # 2.2 10^3/ul (0.8-2.9); LYMPHOCYTES % 26.1 % (15.0-51.0); MEAN CORPUSCULAR HEMOGLOBIN 27.9 pg (29.0-33.0); MEAN CORPUSCULAR HGB CONC 31.4 g/dl (32.0-37.0); MEAN CORPUSCULAR VOLUME 88.8 fl (82.0-101.0); MEAN PLATELET VOLUME 9.1 fl (7.4-10.4); MONOCYTES % 11.9 % (0.0-11.0); NEUTROPHILS % 59.5 % (39.0-77.0); PLATELET COUNT 718 10^3/UL (140-415); RED BLOOD COUNT 3.66 10^6/ul (4.70-6.10)
[2018-11-24 11:34] LABS: ALANINE AMINOTRANSFERASE 19 IU/L (13-69); ALBUMIN 3.6 g/dl (3.3-4.9); ALBUMIN/GLOBULIN RATIO 0.83; ALKALINE PHOSPHATASE 119 IU/L (42-121); ANION GAP 12 (5-13); ASPARTATE AMINO TRANSFERASE 30 IU/L (15-46); BLOOD UREA NITROGEN 39 mg/dl (7-20); CALCIUM 8.8 mg/dl (8.4-10.2); CARBON DIOXIDE 28 mmol/L (21-31); CHLORIDE 98 mmol/L (97-110); CREATININE 6.07 mg/dl (0.61-1.24); GLUCOSE 116 mg/dl (70-220); POTASSIUM 4.3 mmol/L (3.5-5.1); SODIUM 138 mmol/L (135-144); TOTAL PROTEIN 7.9 g/dl (6.1-8.1)
== END 2018-11-24 18:59 | disposition home or self-care (01) | DRG 945 ==
LOC: VRC 18:19
PROC: F07Z5ZZ Bed Mobility Treatment (ICD-10-PCS; principal; 2018-11-12)
PROC: F07Z8ZZ Transfer Training Treatment (ICD-10-PCS; 2018-11-12)
PROC: F07Z9ZZ Gait Training/Functional Ambulation Treatment (ICD-10-PCS; 2018-11-12)
PROC: F08Z2ZZ Grooming/Personal Hygiene Treatment (ICD-10-PCS; 2018-11-12)
PROC: F08Z1ZZ Dressing Techniques Treatment (ICD-10-PCS; 2018-11-12)
PROC: F08Z0ZZ Bathing/Showering Techniques Treatment (ICD-10-PCS; 2018-11-12)
PROC: 0T9B70Z Drainage of Bladder with Drainage Device, Via Natural or Artificial Opening (ICD-10-PCS; 2018-11-13)
DX: R53.81 Other malaise (principal); G92 Toxic encephalopathy; N17.9 Acute kidney failure, unspecified; E87.2 Acidosis; L03.113 Cellulitis of right upper limb; Z74.09 Other reduced mobility; D63.1 Anemia in chronic kidney disease; E03.9 Hypothyroidism, unspecified; F06.31 Mood disorder due to known physiological condition with depressive features; F06.8 Other specified mental disorders due to known physiological condition; I12.9 Hypertensive chronic kidney disease with stage 1 through stage 4 chronic kidney disease, or unspecified chronic kidney disease; R33.9 Retention of urine, unspecified; M19.90 Unspecified osteoarthritis, unspecified site; N31.9 Neuromuscular dysfunction of bladder, unspecified; N18.9 Chronic kidney disease, unspecified; Z90.5 Acquired absence of kidney
CPT/HCPCS: 80048; 80053; 81001; 82728; 83540; 83735; 85025; 85610; 85730; 87081; 87086; 92507; 97110; 97116; 97150; 97163; 97530; 97535

== ENCOUNTER 2019-02-03 16:13 | Emergency (ER) | payer MEDICARE, OTHER ==
[2019-02-03] MEDS ORDERED: LABETALOL HCL 20MG INJ IV (19:30)
[2019-02-03] MEDS ORDERED: ALBUTEROL/IPRATROPIUM (NEB) 3 ML AMP HHN (19:42)
[2019-02-03] MEDS ORDERED: BENZONATATE 100 MG CAP PO (20:00)
== END 2019-02-03 20:02 | disposition left against medical advice (07) ==
LOC: FTE 16:13
DX: J40 Bronchitis, not specified as acute or chronic (principal); I10 Essential (primary) hypertension
CPT/HCPCS: 99283